=== PATIENT | male | born 1945 | race Caucasian/White ===

== ENCOUNTER → 2020-08-09 10:54 | Outpatient (BNVA) | payer MEDICARE, SELFPAY | PROVIDERS: PCP Internal Medicine; Referring Provider Internal Medicine; Visit Provider Hospitalist | DX: J44.9 Chronic obstructive pulmonary disease, unspecified (principal); D86.89 Sarcoidosis of other sites; Z79.899 Other long term (current) drug therapy | CPT/HCPCS: 99212 ==

== ENCOUNTER → 2021-08-08 10:04 | Outpatient (BNVA) | payer MEDICARE, SELFPAY | PROVIDERS: PCP Internal Medicine; Visit Provider Hospitalist | DX: J44.9 Chronic obstructive pulmonary disease, unspecified (principal); J18.9 Pneumonia, unspecified organism; D86.9 Sarcoidosis, unspecified; J90 Pleural effusion, not elsewhere classified | CPT/HCPCS: 99212 ==

== ENCOUNTER → 2021-09-20 10:54 | Outpatient (BNVA) | payer MEDICARE, SELFPAY | PROVIDERS: PCP Internal Medicine; Visit Provider Hospitalist | DX: J44.9 Chronic obstructive pulmonary disease, unspecified (principal); J18.9 Pneumonia, unspecified organism; J90 Pleural effusion, not elsewhere classified; R91.8 Other nonspecific abnormal finding of lung field | CPT/HCPCS: 99212 ==

== ENCOUNTER → 2022-11-17 10:41 | Outpatient (BNVA) | payer MEDICARE, SELFPAY | PROVIDERS: PCP Internal Medicine; Visit Provider Hospitalist | DX: D86.9 Sarcoidosis, unspecified (principal); J44.9 Chronic obstructive pulmonary disease, unspecified; J45.909 Unspecified asthma, uncomplicated; R91.8 Other nonspecific abnormal finding of lung field; Z95.0 Presence of cardiac pacemaker; Z79.899 Other long term (current) drug therapy | CPT/HCPCS: 99212 ==

== ENCOUNTER 2024-04-16 10:47 | Outpatient (AMB) | payer MEDICARE, SELFPAY ==
[2024-04-16 10:51] VITALS: PULSE 65; O2SAT 96; BMI 26.6
--- NOTE | 2024-04-16 10:51 | A.OFFVIS_ITS ---
Vital Signs 04/16/24 10:51 Height 5 ft 8 in Weight 175 lb 4.28 oz BMI 26.6 Pulse 65 Pulse Source Pulse Oximeter Pulse Oximetry (%) 96 Oxygen Delivery Method Room Air Intake Visit Reasons: obstructive sleep apnea Upper Stitcher Required: No Allergies atorvastatin [Lipitor] Allergy (Mild, Verified 04/16/24 10:52) Upset Stomach HPI Comments Details: The patient is a 78-year-old gentleman known cardiac sarcoidosis status post treatment in addition to asthma. He has been all immunomodulator therapy and corticosteroid therapy for many months. Overall his cardiac and respiratory status has been stable. He does need to have a new talent acquisition partner at this time since his talent acquisition partner moved away. No evidence of any active disease at this time. He continues to use his Breo daily with very good effect. Sent Wixela to the pharmacy based on Insurance request. The patient unfortunately had an injury to his shoulder now with significant discomfort. He did have a MRI of his shoulder and will be following up with doing with Orthopedics. It is very suspicious that he has a rotator cuff injury. He is having significant pain sometimes 8/10 in severity. I will provide him with some tramadol until his appointment next week with the accreditation specialist. 08/09/2020 the patient is here for pulmonary follow-up visit. Overall the patient has been doing very well. He is no longer on any immunomodulator therapy at this time. He continues to take the with sella with very good effect. He has not had to use his rescue inhaler. Does not appear to have any more issues with his heart. Although, he has not followed up with Cardiology. Indeed the last time he had a cardiac PET scan demonstration that he has some degree of cardiac sarcoid. At this time is likely that this is dormant. I do not see any evidence of any active disease. However, will request additional testing to make sure that this is the case. 08/08/2021 the patient is here for a pulmonary follow-up visit. Since we last spoke he develops fevers and altered mental status. He was taken to the ER [facility]. Based on the fact that he was having some GI symptoms as well he underwent a CT scan of the abdomen and pelvis. 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 He was treated with antibiotics in the patient was discharged home on no antibiotics. This occurred in the beginning July 2021. Now 4 weeks later he is doing well denies any chest pains or any that is more than his usual. No further complaints of altered mental status or further GI symptoms. The patient was found to H pylori on significant gastritis. Although he opted on not taking the therapy for the H pylori. On examination he still has some crackles in the left base. I did personally review the CT scan of the chest in he does what appears to be a patchy consolidation of the left base along with a parapneumonic effusion. However, this seems to be some nodularity to this pneumonia so therefore underlying occult pulmonary nodule cannot be ruled out. He does need to have a repeat CT scan of the chest done 8 weeks after his initial 1 to make sure that the pneumonia completely subsided. Will make sure we cover the patient with antibiotics in the meantime. 09/20/2021 the patient is here for a pulmonary follow-up visit. Overall he has been doing well. He did take the antibiotics and his respiratory symptoms did improve completely. He denies any GI symptoms. He did have a repeat CT scan of the chest to address the left lower lobe pneumonia that was appreciated on his CT scan of the abdomen along with the pleural effusion. The patient CT scan demonstrates near complete resolution of the consolidation. He still has some evidence of residual haziness likely from the recovery process. Also has a very minimal pleural effusion. Overall is better. The patient also has pulmonary nodules which appear to be stable. No evidence of any active sarcoid at this time. However, recently the patient was exposed to another sick contact. The patient started developing a sore throat and also had congestion. He was tested negative for COVID-19. The patient does have a cough and had to use the nebulizer. Although he just finished a course of antibiotics. I will hold off on giving him any therapy at this time except for [id number] Mucinex. If the patient is no better worsens she is to call and will reassess. 11/17/2022 the patient is here for pulmonary follow-up visit. The patient overall is doing well. He continues use of Wixela daily. He has not had to use a rescue inhaler. He is doing well to his pacemaker. He had a slight bout of atrial fibrillation. However he was minimal and he is not taking any anticoagulation at this time. He is scheduled to have an echocardiogram and subsequently they will going to continue to evaluate the possibility of cardiac sarcoid. His last PET scan was reassuring. That being said if there is any evidence of any active cardiac sarcoid probably will benefit from an ICD instead of a pacemaker. In regards to the pulmonary nodules his last CT scan was back in September 2021. He did have some new nodules. Therefore, I will request a repeat CT scan at [facility] per the patient's preference to follow-up with those nodules. 04/16/2024 the patient is here for pulmonary follow-up visit. He is doing very well. He continues on the Wixela with good response. He does get muscle spasms but is likely secondary to his other medications such as diuretics causing him to have changes in his the electrolytes. He is currently working closely with primary care and Cardiology. The patient did have a CT scan of the chest back in 11/27/2022 which we personally reviewed. Has multiple pulmonary nodules larger 1 measuring 5 mm in size. We did compared to a CT scan from 2019 which is similar in size. Based on the fact the pulmonary nodules have not changed in many years no additional CT scans are warranted. If he develops any worsening symptoms that we can always reconsider. He will continue with current respiratory therapy will follow-up in a year's time. [facility] Medical History (Updated 04/16/24 @ 23:43 by Dawit Oliva MD) Pulmonary nodules Pleural effusion Pneumonia COPD (chronic obstructive pulmonary disease) Sarcoidosis Social History (Updated 08/08/21 @ 10:17 by VIN Ortiz) Patient Tobacco Use Status: Former Tobacco user Tobacco use type: Cigarette Years Smoked: 20 years Review of Systems Const Denies night sweats ENT Denies change in voice, Denies lip swelling, Denies mouth pain and Denies tongue swelling Card Denies chest pain Resp Reports cough GI Denies abdominal pain Musc Reports arthralgias and Reports joint swelling Neuro Denies Neuro-related abnormal movements Psych Denies no additional complaints Avery/Lymph Denies easy bleeding and Denies lymphadenopathy Aller/Immun Denies lip swelling and Denies tongue swelling Physical Exam Vital Signs: Last Vital Signs Pulse 65 04/16/24 10:51 Pulse Ox 96 04/16/24 10:51 Oxygen Delivery Method Room Air 04/16/24 10:51 BMI result Body Mass Index 26.6 Const General: alert Eyes Pupils: Equal, round and reactive pupils present Neck Neck: Yes normal visual inspection, Yes full ROM and Yes no lymphadenopathy Chest Chest palpation & inspection: normal inspection of the chest Resp Auscultation: no crackles and diminished lung sounds Cardio Rate: regular rate Rhythm: regular rhythm Heart sounds: S1 normal heart sound present and S2 normal heart sound present GI Palpation (GI): Soft to palpation and nontender Auscultation: normal bowel sounds General: Yes no CVA tenderness Back/Spine/Pelvis Back: no CVA tenderness Skin General skin exam: rashes and/or lesions noted Neuro Cranial nerves: Yes Equal, round and reactive pupils present Assessment & Plan Assessment & Plan (1) Sarcoidosis: Code(s): D86.9 - Sarcoidosis, unspecified Category: Medical (2) COPD (chronic obstructive pulmonary disease): Code(s): J44.9 - Chronic obstructive pulmonary disease, unspecified Category: Medical Qualifiers: COPD type: chronic bronchitis Chronic bronchitis type: simple Qualified Code(s): J41.0 - Simple chronic bronchitis Plan: Continue wixela daily (3) Pulmonary nodules: Code(s): R91.8 - Other nonspecific abnormal finding of lung field Category: Medical Plan continue Wixela short-acting beta agonist as needed call if any worsening symptoms follow-up 12 months Coding Level of Care Code Est Pt Level 4 (53918) Diagnoses Sarcoidosis D86.9 Simple chronic bronchitis J41.0 COPD type: chronic bronchitis Chronic bronchitis type: simple Pulmonary nodules R91.8 Time Spent (min) 16
== END 2024-04-16 11:38 | disposition home or self-care (01) ==
PROVIDERS: PCP Internal Medicine; Visit Provider Hospitalist
DX: D86.9 Sarcoidosis, unspecified (principal); J41.0 Simple chronic bronchitis; R91.8 Other nonspecific abnormal finding of lung field
CPT/HCPCS: 99214

== ENCOUNTER → 2024-04-16 10:47 | Outpatient (BNVA) | payer MEDICARE, SELFPAY | PROVIDERS: PCP Internal Medicine; Visit Provider Hospitalist | DX: D86.9 Sarcoidosis, unspecified (principal); J41.0 Simple chronic bronchitis; R91.8 Other nonspecific abnormal finding of lung field; Z79.51 Long term (current) use of inhaled steroids | CPT/HCPCS: 99212 ==

== ENCOUNTER 2025-04-14 10:14 | Outpatient (AMB) | payer MEDICARE, SELFPAY ==
[2025-04-14 10:16] VITALS: BP 98/50; PULSE 69; O2SAT 96; BMI 30.7
--- NOTE | 2025-04-14 10:16 | MHC.OFFVIS ---
Vital Signs 04/14/25 10:16 Height 5 ft 8 in Weight 201 lb 11.567 oz BMI 30.7 BP 98/50 L Blood Pressure Location Lt brachial Position Sitting Pulse 69 Pulse Source Pulse Oximeter Pulse Oximetry (%) 96 Oxygen Delivery Method Room Air Intake Visit Reasons: Obstructive sleep apnea Allergies atorvastatin (Lipitor) Allergy (Mild, Verified 04/14/25 10:20) Upset Stomach HPI Comments Details: The patient is a 79-year-old gentleman known cardiac sarcoidosis status post treatment in addition to asthma. He has been all immunomodulator therapy and corticosteroid therapy for many months. Overall his cardiac and respiratory status has been stable. He does need to have a new phone specialist at this time since his phone specialist moved away. No evidence of any active disease at this time. He continues to use his Breo daily with very good effect. Sent Wixela to the pharmacy based on Insurance request. The patient unfortunately had an injury to his shoulder now with significant discomfort. He did have a MRI of his shoulder and will be following up with doing with Orthopedics. It is very suspicious that he has a rotator cuff injury. He is having significant pain sometimes 8/10 in severity. I will provide him with some tramadol until his appointment next week with the bibliographic services specialist. 08/09/2020 the patient is here for pulmonary follow-up visit. Overall the patient has been doing very well. He is no longer on any immunomodulator therapy at this time. He continues to take the with sella with very good effect. He has not had to use his rescue inhaler. Does not appear to have any more issues with his heart. Although, he has not followed up with Cardiology. Indeed the last time he had a cardiac PET scan demonstration that he has some degree of cardiac sarcoid. At this time is likely that this is dormant. I do not see any evidence of any active disease. However, will request additional testing to make sure that this is the case. 08/08/2021 the patient is here for a pulmonary follow-up visit. Since we last spoke he develops fevers and altered mental status. He was taken to the ER [facility]. Based on the fact that he was having some GI symptoms as well he underwent a CT scan of the abdomen and pelvis. 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 He was treated with antibiotics in the patient was discharged home on no antibiotics. This occurred in the beginning July 2021. Now 4 weeks later he is doing well denies any chest pains or any that is more than his usual. No further complaints of altered mental status or further GI symptoms. The patient was found to H pylori on significant gastritis. Although he opted on not taking the therapy for the H pylori. On examination he still has some crackles in the left base. I did personally review the CT scan of the chest in he does what appears to be a patchy consolidation of the left base along with a parapneumonic effusion. However, this seems to be some nodularity to this pneumonia so therefore underlying occult pulmonary nodule cannot be ruled out. He does need to have a repeat CT scan of the chest done 8 weeks after his initial 1 to make sure that the pneumonia completely subsided. Will make sure we cover the patient with antibiotics in the meantime. 09/20/2021 the patient is here for a pulmonary follow-up visit. Overall he has been doing well. He did take the antibiotics and his respiratory symptoms did improve completely. He denies any GI symptoms. He did have a repeat CT scan of the chest to address the left lower lobe pneumonia that was appreciated on his CT scan of the abdomen along with the pleural effusion. The patient CT scan demonstrates near complete resolution of the consolidation. He still has some evidence of residual haziness likely from the recovery process. Also has a very minimal pleural effusion. Overall is better. The patient also has pulmonary nodules which appear to be stable. No evidence of any active sarcoid at this time. However, recently the patient was exposed to another sick contact. The patient started developing a sore throat and also had congestion. He was tested negative for COVID-19. The patient does have a cough and had to use the nebulizer. Although he just finished a course of antibiotics. I will hold off on giving him any therapy at this time except for [id number] Mucinex. If the patient is no better worsens she is to call and will reassess. 11/17/2022 the patient is here for pulmonary follow-up visit. The patient overall is doing well. He continues use of Wixela daily. He has not had to use a rescue inhaler. He is doing well to his pacemaker. He had a slight bout of atrial fibrillation. However he was minimal and he is not taking any anticoagulation at this time. He is scheduled to have an echocardiogram and subsequently they will going to continue to evaluate the possibility of cardiac sarcoid. His last PET scan was reassuring. That being said if there is any evidence of any active cardiac sarcoid probably will benefit from an ICD instead of a pacemaker. In regards to the pulmonary nodules his last CT scan was back in September 2021. He did have some new nodules. Therefore, I will request a repeat CT scan at [facility] per the patient's preference to follow-up with those nodules. 04/14/2025 the patient is here for pulmonary follow-up visit. Overall he is doing well. Continues using the Wixela daily as prescribed. He does have good response to the medication. He has not required his rescue inhaler. His last CT scan of the chest was back in 2022. Demonstrating pulmonary nodules. He has not had any follow-up since then. Will plan to repeat a CAT scan in the fall of 2024. The nodules are stable then no further serial CAT scans warranted. From a cardiac standpoint seems to be doing well. He did have an echocardiogram demonstrating an EF of about 45%. Have his defibrillator in place as he does have a history of the cardiac sarcoid. Appears to be in remission. Will follow-up in 1 year and I will let him know if any changes in the CAT scan that we have in the fall. If any issues arise he can always call for further recommendations. [facility] Medical History (Updated 04/16/24 @ 23:43 by Dawit Oliva MD) Pulmonary nodules Pleural effusion Pneumonia COPD (chronic obstructive pulmonary disease) Sarcoidosis Social History Patient Tobacco Use Status: Former Tobacco user Tobacco use type: Cigarette Years Smoked: 20 years Review of Systems Const Denies night sweats ENT Denies change in voice, Denies lip swelling, Denies mouth pain and Denies tongue swelling Card Denies chest pain Resp Reports cough GI Denies abdominal pain Musc Reports arthralgias and Reports joint swelling Neuro Denies Neuro-related abnormal movements Psych Denies no additional complaints Avery/Lymph Denies easy bleeding and Denies lymphadenopathy Aller/Immun Denies lip swelling and Denies tongue swelling Physical Exam Vital Signs: Last Vital Signs Pulse 69 04/14/25 10:16 BP 98/50 L 04/14/25 10:16 Pulse Ox 96 04/14/25 10:16 Oxygen Delivery Method Room Air 04/14/25 10:16 BMI result Body Mass Index 30.7 Const General: alert Eyes Pupils: Equal, round and reactive pupils present Neck Neck: Yes normal visual inspection, Yes full ROM and Yes no lymphadenopathy Chest Chest palpation & inspection: normal inspection of the chest Resp Auscultation: no crackles and diminished lung sounds Cardio Rate: regular rate Rhythm: regular rhythm Heart sounds: S1 normal heart sound present and S2 normal heart sound present GI Palpation (GI): Soft to palpation and nontender Auscultation: normal bowel sounds General: Yes no CVA tenderness Back/Spine/Pelvis Back: no CVA tenderness Skin General skin exam: rashes and/or lesions noted Neuro Cranial nerves: Yes Equal, round and reactive pupils present Assessment & Plan Assessment & Plan (1) Sarcoidosis: Code(s): D86.9 - Sarcoidosis, unspecified Category: Medical (2) COPD (chronic obstructive pulmonary disease): Code(s): J44.9 - Chronic obstructive pulmonary disease, unspecified Category: Medical Qualifiers: COPD type: chronic bronchitis Chronic bronchitis type: simple Qualified Code(s): J41.0 - Simple chronic bronchitis Plan: Continue wixela daily (3) Pulmonary nodules: Code(s): R91.8 - Other nonspecific abnormal finding of lung field Category: Medical Plan continue Wixela short-acting beta agonist as needed call if any worsening symptoms CT chest follow-up 12 months Orders: Orders CT chest wo IV con Today D86.9 - Sarcoidosis, unspecified, R91.8 - Other nonspecific abnormal finding of lung field Coding Level of Care Code Est Pt Level 4 (58212) Diagnoses Sarcoidosis D86.9 Simple chronic bronchitis J41.0 COPD type: chronic bronchitis Chronic bronchitis type: simple Pulmonary nodules R91.8 Time Spent (min) 17
--- OUTSIDE RECORDS SUMMARY | 2025-04-14 11:03 | XMS_ITS | Clinical Summary ---
Author Organization [facility] Address [address] [place] [address] Phone Care Team Providers Care Business Analyst Intern Name Role Phone EleonoraTacos Primary Care Provider [phone] Allergies Active Allergy Reactions Criticality Noted Date Comments Atorvastatin GI intolerance Medium 12/26/2016 Gi intolerance Bee Venom Protein (Honey Bee) Anaphylaxis High 10/07 Medications albuterol HFA (PROAIR HFA ; PROVENTIL HFA ; VENTOLIN HFA) 90 mcg/actuation inhaler Inhale 2 puffs by mouth every 4 (four) hours if needed. Active fluticasone-sa lmeterol (ADVAIR DISKUS) 250-50 mcg/dose diskus inhaler Inhale 1 Puff into the lungs every 12 hours. 7 Active lisinopriL (PRINIVIL,ZEST RIL) 10 mg tablet Take 10 mg by mouth daily. Active omeprazole (PriLOSEC) [address] capsule Take 20 mg by mouth daily. Active spironolactone (ALDACTONE) 25 mg tablet Take 0.5 tablets (12.5 mg total) by mouth 1 (one) time each day. Active multivitamin (MULTIPLE VITAMINS ORAL) Take 1 tablet by mouth 1 (one) time each day. Active allopurinoL (ZYLOPRIM) 300 mg tablet Take 1 tablet (300 mg total) by mouth 1 (one) time each day. Active Jardiance 10 mg tablet Take 1 tablet (10 mg total) by mouth. 4 Active EPINEPHrine (EPIPEN) 0.3 mg/0.3 mL injection INJECT 1 PEN IN THE MUSCLE ONE TIME DIRECTED FOR ALLERGIC REACTION 4 Active Repatha SureClick 140 mg/mL pen injector injection See Instructions, INJECT 140 MG SUBCUTANEOUSLY EVERY 14 DAYS, # 2 mL, 2 Refills, Maintenance, 09/01/24 4:26:00 PM EST, [facility], 172, cm, 08/13/24 14:24:00 EST, Height, 90.4, kg, 08/13/24 14:24:00 EST, Dry Weight Active gabapentin (NEURONTIN) 300 mg capsule Take 2 capsules (600 mg total) by mouth 2 (two) times a day. 4 Active Vitron-C 65 mg iron- 125 mg tablet,delayed release (DR/EC) Take 1 tablet by mouth. 4 Active metoprolol succinate (TOPROL-XL) 50 mg 24 hr tablet TAKE 1 TABLET BY MOUTH DAILY. MAY TAKE AT BEDTIME Active sertraline (ZOLOFT) 50 mg tablet Take 1 tablet (50 mg total) by mouth 1 (one) time each day. Active aspirin 81 mg EC tablet Take 1 tablet (81 mg total) by mouth 1 (one) time each day. Active Active Problems Problem Noted Date Diagnosed Date Spinal stenosis, lumbar region with neurogenic c laudication 10/14/2024 Spinal stenosis of lumbar region with radiculopa thy 10/07/2024 Assessment & Plan (12/30/2024 3:47 PM EDT): Mr. Rubi is doing quite well and so pleased that his pre and perioperative pain has resolved. It seems the steroids did the trick and since then he is improved to the point where he is walking independently and weaning off of medication. He is currently on a very low dose of gabapentin and can try to wean off over the next week or two. He is trying to be more active at home around the house and could do with some overall strengthening from being deconditioned. His daughter requested a referral to physical therapy and I think that is quite reasonable. The referral slip was provided. He is welcome to contact us if he has any concerns in the future. Assessment & Plan (11/25/2024 11:24 AM EST): Patient is 12 days s/p left L2-3, left L4-5 minimally invasive decompression. He notes improvement in some of the left thigh numbness, but still has mild residual numbness. He is using a walker, states when he is walking without it sometimes his legs feel like they will collapse. He is describing stabbing pain in the bilateral hips at times, bilateral knee pain when he is walking, no known issues with the knees or hips. He did not see good pain relief with oxycodone, we switched him to Dilaudid. He only has a couple left at home and needs a refill. He also increase his gabapentin to 600 mg 3 times daily instead of twice daily. No fevers, wound drainage, sweats chills. Has been active and walking. Mr. Rubi is doing well 12 days s/p left L2-3, left L4-5 decompression. He notes some difficulty with gait and balance, I gave him a prescription for a cane. I gave him prescription for physical therapy. He has a follow-up appointment with Dr. Montana in 1 month, we can try Medrol Dosepak which she states has helped him in the past with flareups similar to this. He has remote history of stomach ulcer, no recent heartburn or stomach pain. Denies diabetes. Is on omeprazole to protect his stomach. I asked him to call with any concerns or questions. All questions answered. Assessment & Plan (10/07/2024 1:09 PM EST): I reviewed the findings in detail with the patient and his daughter using a spine model. He has varying degrees of stenosis but is only symptomatic with pain at the left hip and mainly following an L4 distribution. He did not improve with chiropractic treatment or recent epidural injections. We discussed physical therapy versus surgery and he would like to proceed with surgery as he is quite miserable and feels dependent on medication which then makes him drowsy. I would like to proceed with a left L2-3, left L4-5 MIS decompression. We discussed the details, risks, benefits and anticipated postoperative course. All questions were answered and they wish to proceed. Hyperlipidemia 08/03/2017 GERD (gastroesophageal reflux disease) 7 Diverticulosis 08/03/2017 Asthma 08/03/2017 Sarcoid 12/28/2016 Pulmonary nodules 12/28/2016 Immunizations Name Administration Dates Next Due Influenza Quadravalent, 0.5m l (Fluzone High-dose) 65yo and older 06/26/2023 Influenza trivalent, 0.5mL ( Fluzone High-dose) 65yo and older 06/06/2024 Influenza trivalent, with pr eservative (Fluzone; Afluria) 6mo and older 07/16/2014 Tdap Tetanus diptheria acell ular pertussis (Boostrix; Adacel) 7yo and older 02/12/2018 Surgical History Surgery Date Site/Laterality Comments INSERT / REPLACE / REMOVE PACEMAKER APPENDECTOMY BACK SURGERY 11/13/2024 Left L2-3, left L4-5 minimally invasive decompression, Dr. Montana Medical History Medical History Date Comments Hypertension Hyperlipidemia GERD (gastroesophageal reflux disease) A-fib (CMS/HCC V24, CMS/HCC V28) Sarcoidosis Asthma Myocardial infarction (CMS/HCC V24, CMS/HCC V28) Stomach ulcer 2004 Anemia Depression Pacemaker COPD (chronic obstructive pulmonary disease) (CM S/HCC V24, CMS/HCC V28) Social History Tobacco Use Types Packs/Day Years Used Date Smoking Tobacco: Former Cigarettes Smokeless Tobacco: Former Tobacco Cessation:Counseling Given: Not Answered Sex and Gender Information Value Date Recorded Sex Assigned at Male 10/31/2024 11:10 AM EST Legal Sex Male 9:12 AM EST Gender Identity Male 10/31/2024 11:10 AM EST Sexual Orientation Straight 10/31/2024 11 :10 AM EST Obstetrics History Last Filed Vital Signs Vital Sign Reading Time Taken Comments Blood Pressure 129/90 11/13/2024 12:11 PM EST Pulse 59 11/13/2024 12:11 PM EST Temperature 36.3 C (97.3 F) 11/13/2024 12:11 PM EST Respiratory Rate 20 11/13/2024 12:11 PM EST Oxygen Saturation 97% 11/13/2024 12:11 PM EST Inhaled Oxygen Concentration - - Weight 90.7 kg (200 lb) 11/25/2024 10:17 AM EST Height 170.2 cm (5' 7 ) 11/25/2024 10:17 AM EST Body Mass Index 31.32 11/25/2024 10:17 AM EST Plan of Treatment Health Maintenance Due Date Last Done Comments Pneumococcal Vaccine: 50+ Years (1 of 2 - PCV) 1964 Zoster Vaccines (1 of 2) 1995 RSV Immunization Adult Patients (1 - 1-dose 75+ series) 2020 Depression Screening 09/10/2022 Hepatitis C Screening 09/10/2022 Medicare Annual Wellness Visit 09/10/2022 Social Influencers of Health Screening 09/10/2022 COVID-19 Vaccine ( - 2023-2 5 season) 2024 09/07/2021, 12/11/2020, 11/20/2020 Influenza Vaccine (#1) 2025 , 06/26/2023, 07/16/2014 Hypertension/CHF/CAD Annual BMP Blood Test 11/04/2025 11/04/2024 Falls Risk Assessment 11/13/2025 11/13/2024 DTaP,Tdap,and Td Vaccines (2 - Td or Tdap) 02/13/2028 02/12/2018 Cholesterol Screening (Lipid Panel) 11/04/2029 11/04/2024 HIB Vaccines Aged Out No longer eligi ble based on patient's age to complete this topic HPV Vaccines Aged Out No longer eligi ble based on patient's age to complete this topic Hepatitis A Vaccines Aged Out No long er eligible based on patient's age to complete this topic Hepatitis B Vaccines Aged Out No long er eligible based on patient's age to complete this topic IPV Vaccines Aged Out No longer eligi ble based on patient's age to complete this topic MMR Vaccines Aged Out No longer eligi ble based on patient's age to complete this topic Meningococcal ACWY Vaccine Aged Out N o longer eligible based on patient's age to complete this topic Meningococcal B Vaccine Aged Out No l onger eligible based on patient's age to complete this topic RSV Immunization Patients Under 20 months Aged Out No longer eligible b ased on patient's age to complete this topic Varicella Vaccines Aged Out No longer eligible based on patient's age to complete this topic Medical Devices Implanted Type Area Figure Skater Device Identifier Shelf Expiration Date Model / Serial / Lot Pacemaker Cardiac [employer] Xt Dr Quiñonez-03/14/2022 Implanted:060 04/2022 (Quantity not on file) Cardiac Pacemaker Left: Chest [employer] - CARDIAC RHYTH-CRDM [id number] / [id number] / Powder Surgifoam Absorb Gel - Sna - [id number] Implanted:Qty: 1 on 11/13/2024 by Amita Montana MD at [facility] [employer] Left: Spine Lumbar [employer] 10/09/2025 1978 / NA / [id number] Description:ABSORBABLE GELFO AM POWDER Procedures Procedure Name Priority Date/Time Associated Diagnosis Comments BASIC METABOLIC PANEL Routine 11/04/2024 11:36 AM EST Asthma CAD (coronary artery disease) Pacemaker Dizziness Prostate cancer screening Special screening for malignant neoplasm of prostate GERD (gastroesophageal reflux disease) Pre-diabetes Pre-op evaluation HTN (hypertension) LIPID PANEL WITH REFLEX TO DIRECT LDL Routine 11/04/2024 11:36 AM EST Asthma CAD (coronary artery disease) Pacemaker Dizziness Prostate cancer screening Special screening for malignant neoplasm of prostate GERD (gastroesophageal reflux disease) Pre-diabetes Pre-op evaluation HTN (hypertension) from Last 3 Months or Most Recently Relevant to Health Maintenance Results * (ABNORMAL) Lipid panel with reflex to direct LDL (11/04/2024 11:36 AM EST) Cholesterol 111 0 - 200 mg/dL LAB CHEMISTRY METHOD 11/04/2024 4:15 PM EST [facility] Triglycerides 217(H) 0 - 150 mg/dL LAB CHEMISTRY METHOD 11/04/2024 4:15 PM EST [facility] HDL 34(L) >=40 mg/dL LAB CHEMISTRY METHOD 11/04/2024 4:15 PM EST [facility] LDL Calculated 34 0 - 100 mg/dL LAB CHEMISTRY METHOD 11/04/2024 4:15 PM EST [facility] VLDL Cholesterol Jeremias 43.4 mg/dL LAB CHEMISTRY METHOD 11/04/2024 4:15 PM EST [facility] Non HDL Chol. (LDL+VLDL) 77 <145 mg/dL LAB CHEMISTRY METHOD 11/04/2024 4:15 PM [facility] Chol/HDL Ratio 3.3 0.0 - 4.4 LAB CHEMISTRY METHOD 11/04/2024 4:15 PM [facility] Blood Venous blood specimen / Unknown Venipuncture / Unknown 11/04/2024 11:36 AM EST 11/04/2024 11:36 AM EST us Douglas Gonsales [employer] LAB BLOOD ORDERABLES Final Resul t [facility] [address] [place] [address], * (ABNORMAL) Basic metabolic panel (11/04/2024 11:36 AM EST) Sodium 138 133 - 145 mmol/L LAB CHEMISTRY METHOD 11/04/2024 4:07 PM [facility] Potassium 4.1 3.5 - 5.5 mmol/L LAB CHEMISTRY METHOD 11/04/2024 4:07 PM [facility] Chloride 106 96 - 110 mmol/L LAB CHEMISTRY METHOD 11/04/2024 4:07 PM [facility] CO2 24 21 - 32 mmol/L LAB CHEMISTRY METHOD 11/04/2024 4:07 PM [facility] Anion Gap 8 3 - 11 LAB CHEMISTRY METHOD 11/04/2024 4:07 PM [facility] Glucose 122(H) 70 - 100 mg/dL LAB CHEMISTRY METHOD 11/04/2024 4:07 PM [facility] BUN 38(H) 5 - 25 mg/dL LAB CHEMISTRY METHOD 11/04/2024 4:07 PM [facility] Creatinine 1.16 0.70 - 1.30 mg/dL LAB CHEMISTRY METHOD 11/04/2024 4:07 PM [facility] eGFR 64 >=60 mL/min/1. 73m2 LAB CHEMISTRY METHOD 11/04/2024 4:07 PM EST [facility] Comment:Calculation based on the Chronic Kidney Disease Epidemiology Collaboration (CKD-EPI) equation refit without adjustment for race. BUN/Creatinine Ratio 32.8 LAB CHEMISTRY METHOD 11/04/2024 4:07 PM EST [facility] Calcium 9.0 8.5 - 10.5 mg/dL LAB CHEMISTRY METHOD 11/04/2024 4:07 PM EST [facility] Blood Venous blood specimen / Unknown Venipuncture / Unknown 11/04/2024 11:36 AM EST 11/04/2024 11:36 AM EST us Douglas Gonsales [employer] LAB BLOOD ORDERABLES Final Resul t [facility] [address] [place] [address], from Last 3 Months or Most Recently Relevant to Health Maintenance Insurance [employer] MEDICARE Advance Directives * Full Code - Default (Latest Code Status on File) Date Activated Date Inactivated Comments 11/13/2024 7:39 AM 11/13/2024 3:28 PM This is order is used when code status has not been discussed with the patient, or code status is otherwise unknown/unconfirmed To update the patient's code status, place a code status order. Do not modify or discontinue any currently active code status orders. * Full Code - Default Date Activated Date Inactivated Comments 11/13/2024 7:39 AM 11/13/2024 7:39 AM This is order is used when code status has not been discussed with the patient, or code status is otherwise unknown/unconfirmed To update the patient's code status, place a code status order. Do not modify or discontinue any currently active code status orders. Care Teams Business Analyst Intern Relationship Specialty Start Date End Date Tacos Crews DO [address] [place] [id number] PCP - General Internal Medicine 08/03/17
--- OUTSIDE RECORDS SUMMARY | 2025-04-14 11:03 | XMS_ITS | Encounter Summary ---
Author Organization [facility] Address [address] [place] [address] Phone Care Team Providers Care Police Detective Name Role Phone Tacos Crews DO Primary Care Provider [phone] Encounter Details Date Type Department Care Team (Late st Contact Info) Description 09/12/2024 Documentation Only [facility], [address] [place] [address] [place], [place] [address] [place] [address] Social History Tobacco Use Types Packs/Day Years Used Date Smoking Tobacco: Never Assessed Sex and Gender Information Value Date Recorded Sex Assigned at Not on file Legal Sex Male 10:25 AM EST Gender Identity Not on file Sexual Orientation Not on file documented as of this encounter Plan of Treatment Not on file documented as of this encounter Visit Diagnoses Not on filedocumented in this encounter Care Teams Police Detective Relationship Specialty Start Date End Date Tacos Crews DO [address] [place] [address] PCP - General Internal Medicine 09/12/24 documented as of this encounter
== END 2025-04-14 10:33 | disposition home or self-care (01) ==
LOC: HO.HPS 10:15
PROVIDERS: PCP Internal Medicine; Visit Provider Hospitalist
DX: D86.9 Sarcoidosis, unspecified (principal); J41.0 Simple chronic bronchitis; R91.8 Other nonspecific abnormal finding of lung field
CPT/HCPCS: 99214

== ENCOUNTER → 2025-04-14 10:14 | Outpatient (BNVA) | payer MEDICARE, SELFPAY | PROVIDERS: PCP Internal Medicine; Visit Provider Hospitalist | DX: G47.33 Obstructive sleep apnea (adult) (pediatric) (principal); J41.0 Simple chronic bronchitis; D86.9 Sarcoidosis, unspecified; R91.8 Other nonspecific abnormal finding of lung field; Z79.899 Other long term (current) drug therapy | CPT/HCPCS: 99212 ==